=== PATIENT | male | born 1985 | race Caucasian/White ===

== ENCOUNTER 2021-06-18 17:09 | Inpatient (IN) | payer MEDICARE, MEDICAID ==
[~2021-06-18] VITALS: Ht 167.6 cm; Wt 50.8 kg
[~2021-06-18 17:09] MED LIST: AMLO10TA80 PO; AMLO5TAB88 PO; LABE300T3 PO; LISI40TA13 PO; NEPVIT MT; PRED5DRO22 LEFTEYE; PRED5DRO22 RIGHTEYE; SEVE800T8 PO
[2021-06-18] MEDS ORDERED: ACETAMINOPHEN 325MG TABLET PO STA (18:19)
[2021-06-18] MEDS ORDERED: SODIUM CHLORIDE 0.9% 500 ML IV ONE (18:30)
[2021-06-18 18:59] LABS: HEMATOCRIT. 24.3 % (42.0-52.0); HEMOGLOBIN. 8.4 g/dL (14.0-18.0); MEAN CORPUSCULAR HEMOGLOBIN 33.3 pg (28.0-32.0); MEAN CORPUSCULAR VOLUME 96.2 fL (80.0-94.0); MEAN PLATELET VOLUME 7.9 fl (7.4-10.4); PLATELET 232 x1000/uL (130-400); RED BLOOD CELL COUNT 2.52 mill/uL (4.7-6.1); RED CELL DISTRIBUTION WIDTH 14.8 % (11.6-14.6)
[2021-06-18 19:08] LABS: CHLORIDE 102 mEq/L (98-107)
[2021-06-18 19:14] LABS: PHOSPHORUS 6.1 mg/dL (2.5-4.9)
[2021-06-18] MEDS ORDERED: VANCOMYCIN 1 G PREMIX 200 ML IV SCH (19:30)
[2021-06-18] MEDS ORDERED: CEFEPIME 1,000 MG in DEXTROSE 5% WATER 50 ML IV SCH (20:00)
[2021-06-18 20:26] LABS: PLATELET ESTIMATE NORMAL
[2021-06-19] VITALS (7 sets, daily range): BP systolic 90–104; BP diastolic 51–58
[2021-06-19] MEDS ORDERED: GUAIFENESIN 200MG/10ML SUGAR FREE UDC PO PRN (01:15)
[2021-06-19] MEDS ORDERED: CLONIDINE 0.1MG TABLET PO PRN (01:15)
[2021-06-19] MEDS ORDERED: MAGNESIUM/ALUMINUM HYDROXIDE/SIMETHICONE 30ML UDC PO PRN (01:15)
[2021-06-19] MEDS ORDERED: DIPHENHYDRAMINE 50MG/ML VIAL IV PRN (01:15)
[2021-06-19] MEDS ORDERED: ACETAMINOPHEN 325MG TABLET PO PRN (01:15)
[2021-06-19] MEDS ORDERED: ONDANSETRON HCL 4MG/2ML INJ IV PRN (01:15)
[2021-06-19] MEDS: CEFTRIAXONE 1,000 MG in DEXTROSE 5% WATER 50 ML IV SCH (01:52)
[2021-06-19] MEDS: AZITHROMYCIN 500 MG in DEXT 5% WATER 250 ML IV SCH (02:44)
[2021-06-19] MEDS ORDERED: ASPI-1406 PO (05:18)
[2021-06-19] MEDS ORDERED: OMEP20CA14 PO (05:18)
[2021-06-19] MEDS: AMLODIPINE 10MG TABLET PO SCH (09:00)
[2021-06-19] MEDS ORDERED: IPRATROPIUM/ALBUTEROL 0.5-3(2.5)MG/3ML NEB HHN PRN (12:00)
[2021-06-19 19:00] LABS: HEPATITIS B SURFACE ANTIGEN NEGATIVE
[2021-06-19] MEDS ORDERED: EPOETIN ALFA-EPBX 4,000 UNIT/ML VIAL SUBCUT SCH (21:00)
[2021-06-20] VITALS: BP 92/59
[2021-06-20 04:00] VITALS: BP 94/53
[2021-06-20] MEDS: AZITHROMYCIN 500 MG in DEXT 5% WATER 250 ML IV SCH (05:10)
[2021-06-20] MEDS: CEFTRIAXONE 1,000 MG in DEXTROSE 5% WATER 50 ML IV SCH (05:11)
[2021-06-20 08:00] VITALS: BP 103/64
[2021-06-20] MEDS: AMLODIPINE 10MG TABLET PO SCH (09:00)
[2021-06-20 10:09] LABS: HEMATOCRIT. 22.4 % (42.0-52.0); HEMOGLOBIN. 7.6 g/dL (14.0-18.0); MEAN CORPUSCULAR HEMOGLOBIN 32.3 pg (28.0-32.0); MEAN CORPUSCULAR VOLUME 95.3 fL (80.0-94.0); MEAN PLATELET VOLUME 8.6 fl (7.4-10.4); PLATELET 121 x1000/uL (130-400); RED BLOOD CELL COUNT 2.35 mill/uL (4.7-6.1); RED CELL DISTRIBUTION WIDTH 14.9 % (11.6-14.6)
[2021-06-20 10:23] LABS: CHLORIDE 106 mEq/L (98-107)
[2021-06-20 10:28] LABS: PHOSPHORUS 5.6 mg/dL (2.5-4.9)
[2021-06-20 12:00] VITALS: BP 94/47
[2021-06-20 15:15] LABS: PLATELET ESTIMATE SLIGHTLY DECREASED
[2021-06-20 16:00] VITALS: BP 95/51
[2021-06-20 20:00] VITALS: BP 93/61
[2021-06-21] VITALS: BP 109/74
[2021-06-21] MEDS: CEFTRIAXONE 1,000 MG in DEXTROSE 5% WATER 50 ML IV SCH (01:00)
[2021-06-21] MEDS: AZITHROMYCIN 500 MG in DEXT 5% WATER 250 ML IV SCH (02:30)
[2021-06-21 04:00] VITALS: BP 98/66
[2021-06-21 08:00] VITALS: BP 91/61
[2021-06-21] MEDS: AMLODIPINE 10MG TABLET PO SCH (09:00)
[2021-06-21 10:40] LABS: BASOPHILS % 1.2 % (0.0-2.0); EOSINOPHILS % 3.1 % (0.0-5.0); HEMATOCRIT. 22.8 % (42.0-52.0); HEMOGLOBIN. 7.7 g/dL (14.0-18.0); LYMPHOCYTES % 13.8 % (20.0-50.0); MEAN CORPUSCULAR HEMOGLOBIN 32.7 pg (28.0-32.0); MEAN CORPUSCULAR VOLUME 96.3 fL (80.0-94.0); MEAN PLATELET VOLUME 8.8 fl (7.4-10.4); MONOCYTES % 8.8 % (2.0-8.0); NEUTROPHILS % 73.1 % (40.0-76.0); PLATELET 102 x1000/uL (130-400); RED BLOOD CELL COUNT 2.36 mill/uL (4.7-6.1); RED CELL DISTRIBUTION WIDTH 14.7 % (11.6-14.6)
[2021-06-21 10:58] LABS: PHOSPHORUS 5.7 mg/dL (2.5-4.9)
[2021-06-21] MEDS: MIDODRINE HCL 5MG TABLET PO SCH ×2 (12:19→17:43)
[2021-06-21 16:00] VITALS: BP 105/79
[2021-06-21 20:00] VITALS: BP 104/70
[2021-06-21] MEDS ORDERED: EPOETIN ALFA-EPBX 10,000 UNIT/ML VIAL SUBCUT SCH (21:00)
[2021-06-22] VITALS: BP 102/73
[2021-06-22] MEDS: CEFTRIAXONE 1,000 MG in DEXTROSE 5% WATER 50 ML IV SCH (02:28)
[2021-06-22 04:00] VITALS: BP 108/71
[2021-06-22 08:00] VITALS: BP 106/72
[2021-06-22] MEDS: AMLODIPINE 10MG TABLET PO SCH (08:44)
[2021-06-22] MEDS: MIDODRINE HCL 5MG TABLET PO SCH ×3 (08:49→16:32)
[2021-06-22 12:00] VITALS: BP 105/79
[2021-06-22 16:00] VITALS: BP 111/79
[2021-06-22 20:00] VITALS: BP 105/76
[2021-06-23] VITALS: BP 113/81
[2021-06-23] MEDS: CEFTRIAXONE 1,000 MG in DEXTROSE 5% WATER 50 ML IV SCH (01:07)
[2021-06-23 04:00] VITALS: BP 133/89
[2021-06-23 08:02] VITALS: BP 105/73
[2021-06-23] MEDS: AMLODIPINE 10MG TABLET PO SCH (08:07)
[2021-06-23] MEDS: MIDODRINE HCL 5MG TABLET PO SCH ×2 (08:09→12:37)
[2021-06-23 09:24] VITALS: BP 105/73
[2021-06-23 11:47] VITALS: BP 109/72
== END 2021-06-23 12:50 | disposition home health service (06) | DRG 871 ==
LOC: ER 17:09 → EDBEDREQSVC 20:13 → EDBEDREQTM 20:13 → EDBEDREQ 20:13 → MICUSO 21:27 → EDBEDREQTM 21:32 → EDBEDREQ 21:32 → 7WST 06-19 03:40 → 7EST 06-19 10:19
PROVIDERS: ADMIT Hospitalist; ATTEND Hospitalist
PROC: 5A1D70Z Performance of Urinary Filtration, Intermittent, Less than 6 Hours Per Day (ICD-10-PCS; 2021-06-19)
PROC: 5A1D70Z Performance of Urinary Filtration, Intermittent, Less than 6 Hours Per Day (ICD-10-PCS; principal; 2021-06-21)
DX: A41.51 Sepsis due to Escherichia coli [E. coli] (principal); J96.00 Acute respiratory failure, unspecified whether with hypoxia or hypercapnia; J18.9 Pneumonia, unspecified organism; I50.33 Acute on chronic diastolic (congestive) heart failure; E43 Unspecified severe protein-calorie malnutrition; N18.6 End stage renal disease; N25.81 Secondary hyperparathyroidism of renal origin; I13.2 Hypertensive heart and chronic kidney disease with heart failure and with stage 5 chronic kidney disease, or end stage renal disease; Z68.1 Body mass index [BMI] 19.9 or less, adult; Z20.822 Contact with and (suspected) exposure to COVID-19; H54.7 Unspecified visual loss; D63.1 Anemia in chronic kidney disease; E78.5 Hyperlipidemia, unspecified; F17.200 Nicotine dependence, unspecified, uncomplicated; L89.156 Pressure-induced deep tissue damage of sacral region; F32.9 Major depressive disorder, single episode, unspecified; F41.9 Anxiety disorder, unspecified; Z99.2 Dependence on renal dialysis; Z91.19 Patient's noncompliance with other medical treatment and regimen; Z79.899 Other long term (current) drug therapy; Z79.82 Long term (current) use of aspirin; Z87.01 Personal history of pneumonia (recurrent)
CPT/HCPCS: 36415; 71045; 80053; 80069; 83605; 83735; 83880; 84100; 84134; 84145; 84484; 85025; 86705; 86709; 86803; 87077; 87186; 87340; 93005; 93970; 99285; A6261; J0456; J0692; J0696; J0885; J1200; J2405; J3370; J7030; J7040; J7060; U0003; U0005

== ENCOUNTER 2021-06-25 20:20 | Inpatient (IN) | payer MEDICARE, MEDICAID ==
[~2021-06-25] VITALS: Ht 165.1 cm; Wt 52.6 kg
[~2021-06-25 20:20] MED LIST changes: -AMLO5TAB88 PO; +ASPI-1406 PO; +OMEP20CA14 PO
[2021-06-25] MEDS ORDERED: SODIUM CHLORIDE 0.9% 1,000 ML IV ONE (21:00)
[2021-06-25 21:20] LABS: BASOPHILS % 1.3 % (0.0-2.0); EOSINOPHILS % 3.4 % (0.0-5.0); HEMATOCRIT. 22.4 % (42.0-52.0); HEMOGLOBIN. 7.6 g/dL (14.0-18.0); LYMPHOCYTES % 15.3 % (20.0-50.0); MEAN CORPUSCULAR HEMOGLOBIN 32.3 pg (28.0-32.0); MEAN CORPUSCULAR VOLUME 95.8 fL (80.0-94.0); MEAN PLATELET VOLUME 9.1 fl (7.4-10.4); PLATELET 114 x1000/uL (130-400); RED BLOOD CELL COUNT 2.34 mill/uL (4.7-6.1); RED CELL DISTRIBUTION WIDTH 14.7 % (11.6-14.6)
[2021-06-25 21:23] LABS: CHLORIDE 110 mEq/L (98-107)
[2021-06-25 21:35] LABS: INR 1.3; PROTHROMBIN TIME 13.9 sec (9.6-11.0)
[2021-06-25] MEDS ORDERED: PIPERACILLIN/TAZ 3.375G PREMIX 50 ML IV NR (22:00)
[2021-06-26] MEDS ORDERED: ACETAMINOPHEN 325MG TABLET PO PRN (01:15)
[2021-06-26] MEDS ORDERED: HYDRALAZINE 20MG/ML VIAL IV PRN (01:15)
[2021-06-26] MEDS ORDERED: MORPHINE SULFATE 2 MG/ML CPJ (NOT FOR IM USE) IV PRN (01:15)
[2021-06-26] MEDS ORDERED: DOCUSATE SODIUM 100MG CAPSULE PO PRN (01:15)
[2021-06-26] MEDS ORDERED: HYDROCODONE/ACETAMINOPHEN 5/325MG TABLET PO PRN (01:15)
[2021-06-26] MEDS ORDERED: LORAZEPAM 2MG/ML CPJ IV PRN (01:15)
[2021-06-26] MEDS ORDERED: IPRATROPIUM/ALBUTEROL 0.5-3(2.5)MG/3ML NEB HHN PRN (01:15)
[2021-06-26] MEDS ORDERED: DIPHENHYDRAMINE 50MG/ML VIAL IV PRN (01:15)
[2021-06-26] MEDS ORDERED: ONDANSETRON HCL 4MG/2ML INJ IV PRN (01:15)
[2021-06-26] MEDS ORDERED: CLONIDINE 0.1MG TABLET PO PRN (01:15)
[2021-06-26] MEDS ORDERED: GUAIFENESIN 200MG/10ML SUGAR FREE UDC PO PRN (01:15)
[2021-06-26] MEDS ORDERED: MAGNESIUM/ALUMINUM HYDROXIDE/SIMETHICONE 30ML UDC PO PRN (01:15)
[2021-06-26] MEDS ORDERED: POTASSIUM CHLORIDE 20MEQ TABLET SR PO NR (01:30)
[2021-06-26 04:08] VITALS: BP 118/77
[2021-06-26] MEDS: SODIUM CHLORIDE 0.9% INJ 3ML FLUSH IVF SCH ×2 (05:48→14:00)
[2021-06-26 05:54] VITALS: BP 118/77
[2021-06-26 08:00] VITALS: BP 164/66
[2021-06-26] MEDS ORDERED: PIPERACILLIN/TAZOBACTAM 3.375 G in DEXTROSE 5% WATER 50 ML IV SCH (09:00)
[2021-06-26] MEDS ORDERED: NALOXONE HCL 0.4MG/ML VIAL IV PRN (09:15)
[2021-06-26] MEDS: PIPERACILLIN/TAZOBACTAM 3.375 G in DEXTROSE 5% WATER 50 ML IV SCH (09:43)
[2021-06-26 12:00] VITALS: BP 109/92
[2021-06-26 16:00] VITALS: BP 144/80
[2021-06-26 20:00] VITALS: BP 147/90
[2021-06-26] MEDS ORDERED: EPOETIN ALFA-EPBX 4,000 UNIT/ML VIAL SUBCUT SCH (21:00)
[2021-06-27] VITALS: BP 114/63
[2021-06-27] MEDS: SODIUM CHLORIDE 0.9% INJ 3ML FLUSH IVF SCH ×4 (00:20→21:28)
[2021-06-27] MEDS: PIPERACILLIN/TAZOBACTAM 3.375 G in DEXTROSE 5% WATER 50 ML IV SCH ×3 (00:20→21:28)
[2021-06-27 04:00] VITALS: BP 128/81
[2021-06-27 08:00] VITALS: BP 97/51
[2021-06-27 10:09] LABS: BASOPHILS % 1.2 % (0.0-2.0); EOSINOPHILS % 2.3 % (0.0-5.0); LYMPHOCYTES % 13.8 % (20.0-50.0); MEAN CORPUSCULAR HEMOGLOBIN 32.1 pg (28.0-32.0); MEAN CORPUSCULAR VOLUME 96.6 fL (80.0-94.0); MEAN PLATELET VOLUME 8.9 fl (7.4-10.4); MONOCYTES % 4.5 % (2.0-8.0); NEUTROPHILS % 78.2 % (40.0-76.0); PLATELET 132 x1000/uL (130-400); RED BLOOD CELL COUNT 2.82 mill/uL (4.7-6.1); RED CELL DISTRIBUTION WIDTH 15.2 % (11.6-14.6)
[2021-06-27 10:12] LABS: CHLORIDE 117 mEq/L (98-107)
[2021-06-27 10:26] LABS: HEMATOCRIT. 27.2 % (42.0-52.0)
[2021-06-27 10:27] LABS: PHOSPHORUS 4.8 mg/dL (2.5-4.9)
[2021-06-27 12:00] VITALS: BP 153/62
[2021-06-27 16:00] VITALS: BP 139/67
[2021-06-27 20:00] VITALS: BP 104/56
[2021-06-28] VITALS (10 sets, daily range): BP systolic 74–124; BP diastolic 49–73
[2021-06-28] MEDS: SODIUM CHLORIDE 0.9% INJ 3ML FLUSH IVF SCH ×3 (05:44→20:39)
[2021-06-28 06:29] LABS: BASOPHILS % 1.3 % (0.0-2.0); HEMOGLOBIN. 10.7 g/dL (14.0-18.0); LYMPHOCYTES % 17.4 % (20.0-50.0); MEAN CORPUSCULAR HEMOGLOBIN 32.1 pg (28.0-32.0); MEAN PLATELET VOLUME 8.9 fl (7.4-10.4); MONOCYTES % 6.3 % (2.0-8.0); PLATELET 147 x1000/uL (130-400); RED BLOOD CELL COUNT 3.33 mill/uL (4.7-6.1); RED CELL DISTRIBUTION WIDTH 15.9 % (11.6-14.6)
[2021-06-28] MEDS: SODIUM CHLORIDE 0.45% 1,000 ML IV SCH ×2 (10:16→20:40)
[2021-06-28] MEDS: PIPERACILLIN/TAZOBACTAM 3.375 G in DEXTROSE 5% WATER 50 ML IV SCH ×2 (10:16→20:39)
[2021-06-28] MEDS ORDERED: SODIUM CHLORIDE 0.9% 500 ML IV SCH (11:30)
[2021-06-28 19:51] LABS: CREATINE KINASE 43 IU/L (39-308)
[2021-06-28 19:52] LABS: CREATINE KINASE MB FRACTION 5.6 ng/mL (0.5-3.6)
[2021-06-28] MEDS ORDERED: EPOETIN ALFA-EPBX 4,000 UNIT/ML VIAL SUBCUT SCH (21:00)
[2021-06-28 23:31] LABS: CREATINE KINASE 40 IU/L (39-308)
[2021-06-28 23:32] LABS: CREATINE KINASE MB FRACTION 5.8 ng/mL (0.5-3.6)
[2021-06-29] VITALS (7 sets, daily range): BP systolic 86–159; BP diastolic 40–97
[2021-06-29] MEDS: SODIUM CHLORIDE 0.9% INJ 3ML FLUSH IVF SCH ×3 (06:00→20:56)
[2021-06-29 06:32] LABS: CREATINE KINASE 37 IU/L (39-308)
[2021-06-29 06:33] LABS: CREATINE KINASE MB FRACTION 4.1 ng/mL (0.5-3.6)
[2021-06-29] MEDS: PIPERACILLIN/TAZOBACTAM 3.375 G in DEXTROSE 5% WATER 50 ML IV SCH ×2 (10:49→20:56)
[2021-06-29] MEDS: SODIUM CHLORIDE 0.45% 1,000 ML IV SCH (12:32)
[2021-06-30] VITALS (7 sets, daily range): BP systolic 90–125; BP diastolic 42–65
[2021-06-30] MEDS: SODIUM CHLORIDE 0.45% 1,000 ML IV SCH ×2 (00:36→15:01)
[2021-06-30] MEDS: SODIUM CHLORIDE 0.9% INJ 3ML FLUSH IVF SCH ×3 (07:00→21:22)
[2021-06-30] MEDS: PIPERACILLIN/TAZOBACTAM 3.375 G in DEXTROSE 5% WATER 50 ML IV SCH ×2 (09:52→21:22)
[2021-07-01 00:38] VITALS: BP 90/50
[2021-07-01 04:00] VITALS: BP 88/55
[2021-07-01] MEDS: SODIUM CHLORIDE 0.45% 1,000 ML IV SCH (04:10)
[2021-07-01] MEDS: SODIUM CHLORIDE 0.9% INJ 3ML FLUSH IVF SCH ×3 (06:00→21:43)
[2021-07-01 07:29] LABS: PHOSPHORUS 6.8 mg/dL (2.5-4.9)
[2021-07-01 08:00] VITALS: BP 90/61
[2021-07-01] MEDS: FOLIC ACID/VITAMIN B COMP W-C TABLET PO SCH ×2 (09:00→10:10)
[2021-07-01] MEDS ORDERED: MIDODRINE HCL 2.5MG TABLET PO SCH (09:00)
[2021-07-01] MEDS: MIDODRINE HCL 5MG TABLET PO SCH ×3 (10:00→17:00)
[2021-07-01 12:00] VITALS: BP 86/56
[2021-07-01 14:49] LABS: HEPATITIS B SURFACE ANTIGEN REACTIVE PEND CONFIR
[2021-07-01] MEDS: POTASSIUM CHLORIDE INJ 30 MEQ in DEXT 5%/0.9% NACL 1,000 ML IV SCH (14:50)
[2021-07-01 16:00] VITALS: BP 155/44
[2021-07-01] MEDS: MEGESTROL ACETATE 400 MG/10 ML UDC PO SCH (16:15)
[2021-07-01 20:00] VITALS: BP 87/54
[2021-07-02] VITALS: BP 91/67
[2021-07-02 04:00] VITALS: BP 93/59
[2021-07-02] MEDS: SODIUM CHLORIDE 0.9% INJ 3ML FLUSH IVF SCH ×2 (06:00→14:12)
[2021-07-02 06:35] LABS: BASOPHILS % 1.1 % (0.0-2.0); EOSINOPHILS % 1.3 % (0.0-5.0); HEMATOCRIT. 32.9 % (42.0-52.0); HEMOGLOBIN. 10.1 g/dL (14.0-18.0); LYMPHOCYTES % 14.3 % (20.0-50.0); MEAN CORPUSCULAR HEMOGLOBIN 31.4 pg (28.0-32.0); MEAN CORPUSCULAR VOLUME 102.7 fL (80.0-94.0); MEAN PLATELET VOLUME 10.3 fl (7.4-10.4); MONOCYTES % 5.7 % (2.0-8.0); NEUTROPHILS % 77.6 % (40.0-76.0); PLATELET 90 x1000/uL (130-400); RED CELL DISTRIBUTION WIDTH 17.2 % (11.6-14.6)
[2021-07-02] MEDS: POTASSIUM CHLORIDE INJ 30 MEQ in DEXT 5%/0.9% NACL 1,000 ML IV SCH ×2 (06:55→23:50)
[2021-07-02 07:02] LABS: PHOSPHORUS 7.3 mg/dL (2.5-4.9)
[2021-07-02 08:00] VITALS: BP 80/44
[2021-07-02] MEDS: MEGESTROL ACETATE 400 MG/10 ML UDC PO SCH (09:00)
[2021-07-02] MEDS: MIDODRINE HCL 5MG TABLET PO SCH ×2 (09:00→16:22)
[2021-07-02] MEDS: FOLIC ACID/VITAMIN B COMP W-C TABLET PO SCH (09:00)
[2021-07-02] MEDS ORDERED: SODIUM CHLORIDE 0.9% 500 ML IV SCH (09:45)
[2021-07-02 12:00] VITALS: BP 94/45
[2021-07-02 16:00] VITALS: BP 143/61
[2021-07-02 17:58] LABS: HEPATITIS B SURFACE AB 38.8 mIU/mL
[2021-07-02 20:00] VITALS: BP 82/49
[2021-07-03] VITALS: BP 87/60
[2021-07-03] MEDS: SODIUM CHLORIDE 0.9% INJ 3ML FLUSH IVF SCH ×3 (02:08→22:00)
[2021-07-03 04:00] VITALS: BP 82/49
[2021-07-03 05:09] LABS: HBSAG SCREEN Negative (Negative)
[2021-07-03 08:20] VITALS: BP 85/51
[2021-07-03] MEDS: MEGESTROL ACETATE 400 MG/10 ML UDC PO SCH (09:00)
[2021-07-03] MEDS: MIDODRINE HCL 5MG TABLET PO SCH ×2 (09:00→17:00)
[2021-07-03] MEDS: FOLIC ACID/VITAMIN B COMP W-C TABLET PO SCH (09:00)
[2021-07-03 12:00] VITALS: BP 87/53
[2021-07-03] MEDS ORDERED: SODIUM CHLORIDE 0.9% 500 ML IV SCH (15:30)
[2021-07-03 16:00] VITALS: BP_SYST 76; BP_SYST 97; BP_DIAS 49; BP_DIAS 65
[2021-07-03] MEDS: POTASSIUM CHLORIDE INJ 30 MEQ in DEXT 5%/0.9% NACL 1,000 ML IV SCH (16:45)
[2021-07-03 20:00] VITALS: BP 86/40
[2021-07-04] VITALS: BP 79/45
[2021-07-04 04:00] VITALS: BP 83/56
[2021-07-04] MEDS: SODIUM CHLORIDE 0.9% INJ 3ML FLUSH IVF SCH ×3 (06:00→22:00)
[2021-07-04 08:00] VITALS: BP 93/51
[2021-07-04] MEDS: MEGESTROL ACETATE 400 MG/10 ML UDC PO SCH (09:22)
[2021-07-04] MEDS: FOLIC ACID/VITAMIN B COMP W-C TABLET PO SCH (09:23)
[2021-07-04] MEDS: MIDODRINE HCL 5MG TABLET PO SCH ×2 (09:23→17:52)
[2021-07-04] MEDS: POTASSIUM CHLORIDE INJ 30 MEQ in DEXT 5%/0.9% NACL 1,000 ML IV SCH (10:32)
[2021-07-04 12:11] VITALS: BP 95/50
[2021-07-04] MEDS ORDERED: MORPHINE SULFATE 2 MG/ML CPJ (NOT FOR IM USE) IV PRN (13:45)
[2021-07-04] MEDS: DEXT 5%/0.45% NACL 1000ML 1,000 ML IV SCH (13:45)
[2021-07-04 16:42] VITALS: BP 96/50
[2021-07-04 20:34] VITALS: BP 70/41
[2021-07-04] MEDS ORDERED: NALOXONE HCL 0.4MG/ML VIAL IV PRN (21:00)
[2021-07-05] VITALS (7 sets, daily range): BP systolic 80–172; BP diastolic 38–65
[2021-07-05] MEDS: SODIUM CHLORIDE 0.9% INJ 3ML FLUSH IVF SCH ×3 (06:00→21:06)
[2021-07-05] MEDS: DEXT 5%/0.45% NACL 1000ML 1,000 ML IV SCH (06:25)
[2021-07-05] MEDS ORDERED: LIDOCAINE HCL 1% 20ML VIAL (Pyxis) INJ ONE (07:36)
[2021-07-05] MEDS: MIDODRINE HCL 5MG TABLET PO SCH ×2 (08:57→19:22)
[2021-07-05] MEDS: FOLIC ACID/VITAMIN B COMP W-C TABLET PO SCH (08:57)
[2021-07-05] MEDS: MEGESTROL ACETATE 400 MG/10 ML UDC PO SCH (08:57)
[2021-07-05 10:37] LABS: EOSINOPHILS % 1.1 % (0.0-5.0); HEMATOCRIT. 34.6 % (42.0-52.0); HEMOGLOBIN. 10.5 g/dL (14.0-18.0); LYMPHOCYTES % 28.1 % (20.0-50.0); MEAN CORPUSCULAR HEMOGLOBIN 31.9 pg (28.0-32.0); MEAN CORPUSCULAR VOLUME 105.4 fL (80.0-94.0); MEAN PLATELET VOLUME 9.3 fl (7.4-10.4); MONOCYTES % 6.8 % (2.0-8.0); PLATELET 65 x1000/uL (130-400); RED BLOOD CELL COUNT 3.28 mill/uL (4.7-6.1); RED CELL DISTRIBUTION WIDTH 17.7 % (11.6-14.6)
[2021-07-05 10:54] LABS: PHOSPHORUS 5.1 mg/dL (2.5-4.9)
[2021-07-06] VITALS (7 sets, daily range): BP systolic 91–159; BP diastolic 54–78
[2021-07-06] MEDS: DEXT 5%/0.45% NACL 1000ML 1,000 ML IV SCH ×3 (05:22→23:28)
[2021-07-06] MEDS: SODIUM CHLORIDE 0.9% INJ 3ML FLUSH IVF SCH ×3 (05:23→21:22)
[2021-07-06] MEDS: MEGESTROL ACETATE 400 MG/10 ML UDC PO SCH (08:56)
[2021-07-06] MEDS: FOLIC ACID/VITAMIN B COMP W-C TABLET PO SCH (08:56)
[2021-07-06] MEDS: MIDODRINE HCL 5MG TABLET PO SCH ×2 (08:56→17:48)
[2021-07-07] VITALS: BP 127/62
[2021-07-07 04:00] VITALS: BP 103/78
[2021-07-07] MEDS: SODIUM CHLORIDE 0.9% INJ 3ML FLUSH IVF SCH ×3 (06:00→21:04)
[2021-07-07 08:00] VITALS: BP 99/71
[2021-07-07] MEDS: MIDODRINE HCL 5MG TABLET PO SCH ×2 (10:47→17:12)
[2021-07-07] MEDS: FOLIC ACID/VITAMIN B COMP W-C TABLET PO SCH (10:47)
[2021-07-07] MEDS: MEGESTROL ACETATE 400 MG/10 ML UDC PO SCH (10:47)
[2021-07-07] MEDS: DEXT 5%/0.45% NACL 1000ML 1,000 ML IV SCH (18:50)
[2021-07-07 20:00] VITALS: BP 123/58
[2021-07-08] VITALS: BP 122/62
[2021-07-08 04:00] VITALS: BP 128/72
[2021-07-08] MEDS: SODIUM CHLORIDE 0.9% INJ 3ML FLUSH IVF SCH ×3 (05:46→21:19)
[2021-07-08 08:00] VITALS: BP 104/78
[2021-07-08] MEDS: FOLIC ACID/VITAMIN B COMP W-C TABLET PO SCH ×2 (09:00→10:49)
[2021-07-08] MEDS: MEGESTROL ACETATE 400 MG/10 ML UDC PO SCH ×2 (09:00→10:49)
[2021-07-08] MEDS: MIDODRINE HCL 5MG TABLET PO SCH ×3 (09:07→17:15)
[2021-07-08 12:00] VITALS: BP 96/68
[2021-07-08 16:00] VITALS: BP 141/88
[2021-07-08] MEDS: DEXT 5%/0.45% NACL 1000ML 1,000 ML IV SCH (17:15)
[2021-07-08 20:00] VITALS: BP 105/76
[2021-07-09] VITALS: BP 106/78
[2021-07-09 04:00] VITALS: BP 99/64
[2021-07-09] MEDS: SODIUM CHLORIDE 0.9% INJ 3ML FLUSH IVF SCH ×2 (05:07→14:00)
[2021-07-09 07:57] VITALS: BP 141/47
[2021-07-09] MEDS: MIDODRINE HCL 5MG TABLET PO SCH ×2 (08:55→17:00)
[2021-07-09] MEDS: FOLIC ACID/VITAMIN B COMP W-C TABLET PO SCH (08:55)
[2021-07-09] MEDS: MEGESTROL ACETATE 400 MG/10 ML UDC PO SCH (08:55)
[2021-07-09] MEDS: DEXT 5%/0.45% NACL 1000ML 1,000 ML IV SCH (10:29)
[2021-07-09 12:02] VITALS: BP 150/40
[2021-07-09 13:39] VITALS: BP 150/40
== END 2021-07-09 19:05 | DRG 193 ==
LOC: ER 20:20 → 6WST 22:49 → EDBEDREQTM 23:04 → EDBEDREQ 23:04 → ENRESERV 06-26 01:58
PROVIDERS: ADMIT Internal Medicine; ATTEND Internal Medicine
PROC: 02HV33Z Insertion of Infusion Device into Superior Vena Cava, Percutaneous Approach (ICD-10-PCS; principal; 2021-06-25)
PROC: B518ZZA Fluoroscopy of Superior Vena Cava, Guidance (ICD-10-PCS; 2021-06-25)
PROC: B548ZZA Ultrasonography of Superior Vena Cava, Guidance (ICD-10-PCS; 2021-06-25)
PROC: 5A1D70Z Performance of Urinary Filtration, Intermittent, Less than 6 Hours Per Day (ICD-10-PCS; 2021-06-26)
PROC: 5A1D70Z Performance of Urinary Filtration, Intermittent, Less than 6 Hours Per Day (ICD-10-PCS; 2021-06-28)
PROC: 5A1D70Z Performance of Urinary Filtration, Intermittent, Less than 6 Hours Per Day (ICD-10-PCS; 2021-06-30)
PROC: 5A1D70Z Performance of Urinary Filtration, Intermittent, Less than 6 Hours Per Day (ICD-10-PCS; 2021-07-02)
PROC: 5A1D70Z Performance of Urinary Filtration, Intermittent, Less than 6 Hours Per Day (ICD-10-PCS; 2021-07-04)
PROC: 5A1D70Z Performance of Urinary Filtration, Intermittent, Less than 6 Hours Per Day (ICD-10-PCS; 2021-07-08)
DX: J18.9 Pneumonia, unspecified organism (principal); E43 Unspecified severe protein-calorie malnutrition; N18.6 End stage renal disease; I12.0 Hypertensive chronic kidney disease with stage 5 chronic kidney disease or end stage renal disease; Z68.1 Body mass index [BMI] 19.9 or less, adult; D63.1 Anemia in chronic kidney disease; L89.159 Pressure ulcer of sacral region, unspecified stage; E21.1 Secondary hyperparathyroidism, not elsewhere classified; E87.6 Hypokalemia; E87.8 Other disorders of electrolyte and fluid balance, not elsewhere classified; R13.10 Dysphagia, unspecified; D69.6 Thrombocytopenia, unspecified; D53.9 Nutritional anemia, unspecified; Z20.822 Contact with and (suspected) exposure to COVID-19; F32.A Depression, unspecified; F41.9 Anxiety disorder, unspecified; Z99.2 Dependence on renal dialysis; Z99.3 Dependence on wheelchair; Z91.19 Patient's noncompliance with other medical treatment and regimen; Z79.82 Long term (current) use of aspirin; Z79.899 Other long term (current) drug therapy
CPT/HCPCS: 36415; 36573; 71045; 80048; 80053; 80061; 80069; 82550; 82553; 83036; 83605; 83880; 84100; 84145; 84439; 84443; 84484; 85025; 85379; 86705; 86706; 86709; 86803; 86850; 86900; 87340; 87426; 92610; 93005; 93306; 93970; 97162; 97166; 99291; A6261; C1725; C1893; J0885; J1200; J2405; J2543; J3480; J3490; J7030; J7040; J7042; J7060